=== PATIENT | male | born 1965 | race Caucasian/White ===

== ENCOUNTER 2019-03-23 10:56 | Emergency (ER) | payer BC, OTHER ==
[2019-03-23 11:07] VITALS: BP 109/80; PULSE 77; TEMP 98.8; BMI 28.7
--- NOTE | 2019-03-23 12:10 | PDOC ---
History of Present Illness - General Chief Complaint: Pain, Acute Stated Complaint: LEFT ARM PAIN Time Seen by Provider: 03/23/19 10:57 - History of Present Illness Initial Comments: 03/23/19 12:12 53yo M hx chronic back pain, DM presents to the ED with L forearm pain. 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 Pt reports he forgot his padding at home. Denies other injuries. Was able to continue the game, but due to persistent pain and swelling today, he presented to the ED for evaluation. Denies weakness or numbness in his LUE. Denies recent fevers, chills , cp, sob, headahce, n/v/d, LE edema, urinary sxs. Past History - Past Medical History Allergies/Adverse Reactions: Allergies Allergy/AdvReac Type Severity Reaction Status Date / Time No Known Allergies Allergy Verified 03/23/19 10:57 Home Medications: Ambulatory Orders Atorvastatin Ca [Lipitor] 40 mg PO HS 03/23/19 Canagliflozin/Metformin HCl [Invokamet 150-1,000 mg Tablet] 1 each PO BID Duloxetine HCl [Cymbalta -] 60 mg PO DAILY 03/23/19 Insulin Glargine,Hum.rec.anlog [Basaglar Kwikpen U-100] 10 unit SQ DAILY Liraglutide [Victoza -] 1.8 mg SQ DAILY@0700 03/23/19 Pregabalin [Lyrica] 0 mg PO DAILY 03/23/19 COPD: No Diabetes: Yes - Suicide/Smoking/Psychosocial Hx Smoking History: Never smoked Hx Alcohol Use: No Drug/Substance Use Hx: No Review of Systems - Review of Systems Comments:: 03/23/19 12:14 GENERAL/CONSTITUTIONAL: No fever or chills. No weakness. HEAD, EYES, EARS, NOSE AND THROAT: No change in vision. No ear pain or discharge. No sore throat. GASTROINTESTINAL: No nausea, vomiting, diarrhea or constipation. GENITOURINARY: No dysuria, frequency, or change in urination. CARDIOVASCULAR: No chest pain or shortness of breath. RESPIRATORY: No cough, wheezing, or hemoptysis. MUSCULOSKELETAL: +L forearm pain. No neck or back pain. SKIN: No rash NEUROLOGIC: No headache, vertigo, loss of consciousness, or change in strength/ sensation. ENDOCRINE: No increased thirst. No abnormal weight change. HEMATOLOGIC/LYMPHATIC: No anemia, easy bleeding, or history of blood clots. ALLERGIC/IMMUNOLOGIC: No hives or skin allergy. *Physical Exam - Vital Signs Last Vital Signs Temp Pulse Resp BP Pulse Ox 98.8 F 77 17 109/80 98 03/23/19 10:56 03/23/19 10:56 03/23/19 10:56 03/23/19 10:56 03/23/19 10:56 - Physical Exam Comments: 03/23/19 12:14 GENERAL: Awake, alert, and fully oriented, in no acute distress HEAD: No signs of trauma EYES: PERRLA, EOMI, sclera anicteric, conjunctiva clear ENT: Oropharynx clear without exudates. Moist mucosa NECK: Normal ROM, supple, no lymphadenopathy, JVD, or masses LUNGS: Breath sounds equal, clear to auscultation bilaterally. No wheezes, and no crackles HEART: Regular rate and rhythm, normal S1 and S2, no murmurs, rubs or gallops ABDOMEN: Soft, nontender, normoactive bowel sounds. No guarding, no rebound. No masses EXTREMITIES: LUE with edema noted from proximal to mid dorsal aspect of forearm as well as ttp. No deformities noted. Full strength with extension and flexion or wrist and fingers. Full strength abduction of fingers. Able to give okay, thumbs up. No scaphoid tenderness. Normal sensation in LUE. 2+ radial pulses. NEUROLOGICAL: Normal speech, cranial nerves intact, equal strength and sensation b/l SKIN: Warm, Dry, normal turgor, no rashes or lesions noted. ED Treatment Course - RADIOLOGY Radiology Studies Ordered: Category Date Time Status ELBOW-LEFT [RAD] Stat Radiology 03/23/19 10:58 Completed FOREARM- LEFT [RAD] Stat Radiology 03/23/19 10:58 Completed Medical Decision Making - Medical Decision Making 03/23/19 12:05 53yo M hx DM, chronic back pain presents to the ED with L forearm pain after direct blow from baseball yesterday evening LUE is neurovascularly intact XR with no acute fractures Alberto wrap placed for comfort, pain controlled with ibuprofen Will refer to ortho for f/u Pt clinically stable for DC home I discussed the physical exam findings, ancillary test results and final diagnoses with the patient. I answered all of the patient's questions. The patient was satisfied with the care received and felt comfortable with the discharge plan and treatment plan. The patient will call their primary care physician within 24 hours to arrange follow-up and will return to the Emergency Department with any new, persistent or worsening symptoms. *DC/Admit/Observation/Transfer Diagnosis at time of Disposition: Forearm contusion, Arm pain, left, Arm contusion - Discharge Dispostion Disposition: HOME Condition at time of disposition: Stable - Referrals Referrals: Frida Montemayor [Primary Care Provider] - - Patient Instructions Additional Instructions: Continue to take ibuprofen every 6 hours for pain Follow up with the orthopedic doctor within 1 week Return to the emergency department if you have any new, worsening or concerning symptoms - Post Discharge Activity - Attestations Physician Attestion: 03/23/19 12:10 I, Dr. Hollie Rose MD, attest that this document has been prepared under my direction and personally reviewed by me in its entirety. I further attest, that it accurately reflects all work, treatment, procedures and medical decision -making performed by me.
== END 2019-03-23 12:12 | disposition home or self-care (01) ==
LOC: FER 10:56
DX: W18.39XA Other fall on same level, initial encounter (principal); Y92.89 Other specified places as the place of occurrence of the external cause; Y93.64 Activity, baseball; Y99.0 Civilian activity done for income or pay; E11.9 Type 2 diabetes mellitus without complications; G89.29 Other chronic pain; Z79.4 Long term (current) use of insulin
CPT/HCPCS: 73070-TC-LT-FY; 73090-TC-LT-FY; 99282-25

== ENCOUNTER 2019-06-20 17:51 | Emergency (ER) | payer OTHER | END 2019-06-20 20:02 | disposition home or self-care (01) | LOC: FER 17:51 ==